=== PATIENT | female | born 1965 | race African-American/Black ===

== ENCOUNTER 2017-06-07 15:50 | Inpatient (IN) | payer MEDICARE, MEDICAID ==
[~2017-06-07] VITALS: Ht 165.1 cm; Wt 97.5 kg
[~2017-06-07 15:50] MED LIST: DIAZ5TAB4 PO; HYDR-548 PO; LIDO30AD10 TD; NAPR-1164 PO; PANT40TA2 PO
[2017-06-07] MEDS ORDERED: HYDROMORPHONE 1 MG/1 ML DISP.SYRIN IV ONE ×3 (16:45→18:30)
[2017-06-07] MEDS ORDERED: HYDROMORPHONE 2 MG/1 ML DISP.SYRIN ONE ×3 (17:02→18:51)
[2017-06-07 17:08] LABS: BASOPHILS % (AUTO) 0.5 % (0.0-2.0); EOSINOPHILS # (AUTO) 0.2 K/uL (0.0-0.7); EOSINOPHILS % (AUTO) 4.2 % (0.0-7.0); HEMATOCRIT 30.1 % (31.2-41.9); LYMPHOCYTES # (AUTO) 0.8 K/uL (20.0-40.0); LYMPHOCYTES % (AUTO) 19.9 % (20.5-51.5); MEAN CORPUSCULAR HEMOGLOBIN 25.8 uug (24.7-32.8); MEAN CORPUSCULAR HGB CONC 33 g/dL (32.3-35.6); MEAN CORPUSCULAR VOLUME 78.1 fL (75.5-95.3); MONOCYTES # (AUTO) 0.3 K/uL (2.0-10.0); MONOCYTES % (AUTO) 7.5 % (0.0-11.0); NEUTROPHILS # (AUTO) 2.6 K/uL (1.8-8.9); NEUTROPHILS % (AUTO) 67.9 % (38.5-71.5); PLATELET COUNT (AUTO) 195 K/uL (179-408); RED BLOOD CELL COUNT(AUTO) 3.86 MIL/uL (3.63-4.92); WHITE BLOOD COUNT (AUTO) 3.9 K/uL (3.8-11.8)
[2017-06-07 17:41] LABS: CREATININE 0.9 mg/dL (0.6-1.3); POTASSIUM 3.8 mmol/L (3.5-5.1)
[2017-06-07 17:47] LABS: BILIRUBIN,TOTAL 0.5 mg/dL (0.2-1.0); TOTAL PROTEIN, SERUM 6.7 g/dL (6.4-8.2)
[2017-06-07] MEDS ORDERED: TRAZODONE PO (18:35)
[2017-06-07] MEDS ORDERED: FLEXERIL PO (18:35)
[2017-06-07 20:30] VITALS: BP 115/78
[2017-06-07] MEDS ORDERED: TRAZODONE 100 MG TABLET PO PRN (23:00)
[2017-06-07] MEDS: ONDANSETRON 4 MG/2 ML VIAL IV PRN (23:09)
[2017-06-08] MEDS: HYDROMORPHONE 2 MG/1 ML DISP.SYRIN IV PRN ×4 (01:35→14:49)
[2017-06-08] MEDS ORDERED: HYDROMORPHONE 2 MG/1 ML DISP.SYRIN ONE (01:52)
[2017-06-08] MEDS ORDERED: IV NS 1000 ML 1,000 ML IV PRN (02:14)
[2017-06-08] MEDS ORDERED: DEXAMETHASONE SOD PHOSPHATE 10 MG INJ IV ONE (02:15)
[2017-06-08] MEDS ORDERED: ACETAMINOPHEN 325 MG TABLET PO PRN (02:15)
[2017-06-08] MEDS ORDERED: ONDANSETRON 4 MG/2 ML VIAL IV PRN (02:15)
[2017-06-08] MEDS ORDERED: DIAZEPAM 5 MG TABLET PO PRN (02:15)
[2017-06-08] MEDS ORDERED: ZOLPIDEM 5 MG TABLET PO PRN (02:15)
[2017-06-08 05:36] VITALS: BP 125/78
[2017-06-08 06:33] LABS: BASOPHILS % (AUTO) 0.5 % (0.0-2.0); EOSINOPHILS # (AUTO) 0.2 K/uL (0.0-0.7); EOSINOPHILS % (AUTO) 4.9 % (0.0-7.0); HEMATOCRIT 28.7 % (31.2-41.9); HEMOGLOBIN 9.3 g/dL (10.9-14.3); LYMPHOCYTES # (AUTO) 1.1 K/uL (20.0-40.0); LYMPHOCYTES % (AUTO) 29.7 % (20.5-51.5); MEAN CORPUSCULAR HEMOGLOBIN 25.1 uug (24.7-32.8); MEAN CORPUSCULAR HGB CONC 32 g/dL (32.3-35.6); MEAN CORPUSCULAR VOLUME 77.8 fL (75.5-95.3); MONOCYTES # (AUTO) 0.4 K/uL (2.0-10.0); MONOCYTES % (AUTO) 11.2 % (0.0-11.0); NEUTROPHILS # (AUTO) 1.9 K/uL (1.8-8.9); NEUTROPHILS % (AUTO) 53.7 % (38.5-71.5); PLATELET COUNT (AUTO) 200 K/uL (179-408); RED BLOOD CELL COUNT(AUTO) 3.69 MIL/uL (3.63-4.92); WHITE BLOOD COUNT (AUTO) 3.6 K/uL (3.8-11.8)
[2017-06-08 06:54] LABS: BILIRUBIN,TOTAL 0.3 mg/dL (0.2-1.0); MAGNESIUM 1.8 mg/dL (1.8-2.4); PHOSPHOROUS 4.6 mg/dL (2.5-4.9); POTASSIUM 3.6 mmol/L (3.5-5.1); TOTAL PROTEIN, SERUM 6.5 g/dL (6.4-8.2)
[2017-06-08 07:05] LABS: THYROID STIMULATING HORMONE 1.142 mIU/mL (0.358-3.740)
[2017-06-08] MEDS: ONDANSETRON 4 MG/2 ML VIAL IV PRN (08:25)
[2017-06-08] MEDS: NAPROXEN 500 MG TABLET PO SCH ×2 (08:25→16:21)
[2017-06-08 10:39] VITALS: BP 109/74
[2017-06-08 14:42] VITALS: BP 105/73
[2017-06-10 12:09] LABS: *HEMOGLOBIN A 64.5 % (96.4-98.8); *HEMOGLOBIN A2 3.6 % (1.8-3.2); *HEMOGLOBIN S 31.9 % (0.0)
== END 2017-06-08 16:40 | disposition home or self-care (01) | DRG 93 ==
LOC: ER 15:51 → MED 19:55
PROVIDERS: ADMIT Nurse Practitioner Acute Care; ATTEND Nurse Practitioner Acute Care
DX: G89.29 Other chronic pain (principal); D57.1 Sickle-cell disease without crisis; D50.9 Iron deficiency anemia, unspecified; M48.061 Spinal stenosis, lumbar region without neurogenic claudication; Z98.84 Bariatric surgery status
CPT/HCPCS: 36415; 83021; 83735; 84100; 84443; 85025; 85651; 85660; A4663; J1170; J2405; J7030

== ENCOUNTER 2018-05-24 23:09 | Inpatient (IN) | payer MEDICARE, MEDICAID ==
[~2018-05-24] VITALS: Ht 165.1 cm; Wt 83.1 kg
[~2018-05-24 23:09] MED LIST changes: +FLEXERIL PO; +HYDR-4354 PO; -HYDR-548 PO; -LIDO30AD10 TD; -PANT40TA2 PO; +TRAZODONE PO
[2018-05-25] MEDS ORDERED: PANTOPRAZOLE SODIUM 40 MG VIAL IV ONE
[2018-05-25 00:23] LABS: BASOPHILS % (AUTO) 0.6 % (0.0-2.0); EOSINOPHILS # (AUTO) 0.1 K/uL (0.0-0.7); EOSINOPHILS % (AUTO) 2.3 % (0.0-7.0); HEMATOCRIT 28.2 % (31.2-41.9); HEMOGLOBIN 9.2 g/dL (10.9-14.3); LYMPHOCYTES % (AUTO) 36.2 % (20.5-51.5); MEAN CORPUSCULAR HEMOGLOBIN 22.6 uug (24.7-32.8); MEAN CORPUSCULAR HGB CONC 33 g/dL (32.3-35.6); MEAN CORPUSCULAR VOLUME 69.2 fL (75.5-95.3); MONOCYTES # (AUTO) 0.3 K/uL (2.0-10.0); MONOCYTES % (AUTO) 5.4 % (0.0-11.0); NEUTROPHILS # (AUTO) 3.1 K/uL (1.8-8.9); NEUTROPHILS % (AUTO) 55.5 % (38.5-71.5); PLATELET COUNT (AUTO) 306 K/uL (179-408); RED BLOOD CELL COUNT(AUTO) 4.08 MIL/uL (3.63-4.92); WHITE BLOOD COUNT (AUTO) 5.6 K/uL (3.8-11.8)
[2018-05-25] MEDS ORDERED: ONDANSETRON 4 MG/2 ML VIAL ONE ×2 (00:27→01:27)
[2018-05-25] MEDS ORDERED: PANTOPRAZOLE SODIUM 40 MG VIAL ONE (00:27)
[2018-05-25 00:45] LABS: BILIRUBIN,DIRECT 0.1 mg/dL (0.0-0.2); BILIRUBIN,TOTAL 0.4 mg/dL (0.2-1.0); CREATININE 0.8 mg/dL (0.6-1.3); POTASSIUM 3.3 mmol/L (3.5-5.1); TOTAL PROTEIN, SERUM 8.4 g/dL (6.4-8.2)
[2018-05-25] MEDS ORDERED: GABA600T12 PO (01:24)
[2018-05-25] MEDS ORDERED: CARI350T PO (01:24)
[2018-05-25] MEDS ORDERED: ARIP10TA9 PO (01:24)
[2018-05-25] MEDS ORDERED: HYDROMORPHONE 1 MG/1 ML DISP.SYRIN ONE (01:27)
[2018-05-25] MEDS ORDERED: ONDANSETRON 4 MG/2 ML VIAL IV ONE ×2 (01:30)
[2018-05-25] MEDS ORDERED: IV NORMAL SALINE 1000 ML BAG IV ONE ×2 (01:30)
[2018-05-25] MEDS ORDERED: HYDROMORPHONE 1 MG/1 ML DISP.SYRIN IV ONE (01:30)
--- NOTE | 2018-05-25 02:16 | NUR ---
Pt watching tv and sitting up in bed at this time, in no acute distress.
--- NOTE | 2018-05-25 02:36 | NUR ---
Report given to Rona SHARMA
[2018-05-25] MEDS ORDERED: ONDANSETRON 4 MG/2 ML VIAL IV PRN (02:45)
[2018-05-25] MEDS ORDERED: ZOLPIDEM 5 MG TABLET PO PRN (02:45)
[2018-05-25] MEDS ORDERED: IV NS 1000 ML 1,000 ML IV PRN (02:45)
[2018-05-25] MEDS ORDERED: ACETAMINOPHEN 325 MG TABLET PO PRN (02:45)
[2018-05-25] MEDS ORDERED: KETOROLAC TROMETHAMINE 15 MG INJ IVP PRN (02:45)
--- NOTE | 2018-05-25 02:59 | NUR ---
Pt. admitted to [facility] , under care of Kristofer Belongs List completed
[2018-05-25 03:00] VITALS: BP 123/82
--- NOTE | 2018-05-25 03:00 | NUR ---
Received pt on m/s unit, under the care of DASHAWN MARION. Dx Acute pancreatitis. AxO x4. Pt c/o of pain 12/10. Pain management on shift. Order of KCL 20mEQ noted. Pertinent assessments and unit orientation done. Belongings list completed. Safe environment implemented, call light within reach. Will continue to monitor and carry out all orders.
[2018-05-25] MEDS: POTASSIUM CHLORIDE 50 ML IV SCH ×2 (03:34→04:57)
[2018-05-25] MEDS: PANTOPRAZOLE SODIUM 40 MG VIAL IV SCH ×2 (03:34→09:44)
[2018-05-25 07:04] LABS: CREATININE 0.7 mg/dL (0.6-1.3); POTASSIUM 3.8 mmol/L (3.5-5.1)
--- NOTE | 2018-05-25 08:00 | NUR ---
Patient awake, alert, not in any form of acute distress. No complain of any pain or discomfort at this time. Peripheral IV line on the left AC, in place and patent with NS IV running at 100 cc/hr. Call light placed within reach.
--- NOTE | 2018-05-25 10:30 | NUR ---
Patient complained of pain, offered PRN ketorolac as ordered but patient refused to receive medication, asking for a different pain medication. Notified Lissette English CLIENT EXPERIENCE CONSULTANT regarding patient's concern but no new order given and CLIENT EXPERIENCE CONSULTANT stated she will speak to the patient. Patient made aware.
--- NOTE | 2018-05-25 12:40 | NUR ---
Patient stated she wanted to go home. Explained to patient that no order for discharge and that if she leaves she is going home against medical advise with verbalized understanding. But patient still wanted to go home. Patient also asking for her psych medications and [employer] Lissette English made aware. Explained the risks of going home against medical advise but patient kept insisting on going home. She refused to sign AMA form. Patient kept shouting at the nurse. Offered her pain medication for complain of pain but patient still refused. Patient not accepting any assistance from nurse, she pulled out peripheral IV herself and name band. Patient left AMA and does not want any assistance offered.
[2018-05-25] MEDS ORDERED: Medication Not On Formulary EA (Gabapentin 600 MG) PO SCH (13:00)
[2018-05-25] MEDS ORDERED: GABAPENTIN 300 MG CAPSULE PO SCH (13:00)
[2018-05-26] MEDS ORDERED: ARIPIPRAZOLE 10 MG TABLET PO SCH (09:00)
== END 2018-05-25 12:45 | disposition left against medical advice (07) | DRG 440 ==
LOC: ER 23:09 → MED 05-25 02:39
PROVIDERS: ADMIT Nurse Practitioner Acute Care; ATTEND Registered Nurse
DX: K85.20 Alcohol induced acute pancreatitis without necrosis or infection (principal); K86.0 Alcohol-induced chronic pancreatitis; D57.1 Sickle-cell disease without crisis; Z98.84 Bariatric surgery status; K43.9 Ventral hernia without obstruction or gangrene; Z79.899 Other long term (current) drug therapy; E87.6 Hypokalemia; E66.9 Obesity, unspecified; Z68.30 Body mass index [BMI] 30.0-30.9, adult; F31.9 Bipolar disorder, unspecified; Z71.3 Dietary counseling and surveillance; F10.10 Alcohol abuse, uncomplicated; Y90.9 Presence of alcohol in blood, level not specified; Z76.5 Malingerer [conscious simulation]
CPT/HCPCS: 36415; 70030-TC; 71045; 83690; 85025; 93005; A4663; C9113; G0378; J1170; J1885; J2405; J3480; J7030

== ENCOUNTER 2018-05-25 15:08 | Emergency (ER) | payer MEDICARE, MEDICAID ==
[~2018-05-25] VITALS: Ht 165.1 cm; Wt 83.0 kg
[~2018-05-25 15:08] MED LIST changes: +ARIP10TA9 PO; +CARI350T PO; +GABA600T12 PO
--- NOTE | 2018-05-25 16:07 | NUR ---
PT A/OX4, PRESENTS TO THE ER C/O ABD PAIN. PT STATES SHE WAS SEEN IN THIS ER LAST NIGHT AND ADMITTED TO THIS HOSPITAL FOR PANCREATITIS BUT SHE LEFT AMA BECAUSE SHE WAS "ONLY GETTING TRAMADOL AND NOT DILAUDID". PT SLEEPING IN BED COMFORTABLY AT THIS TIME.
--- NOTE | 2018-05-25 16:44 | NUR ---
DAVE OSORIO AT BEDSIDE FOR MSE.
--- NOTE | 2018-05-25 16:55 | NUR ---
HEEL REDUCER AT BEDSIDE.
[2018-05-25 17:32] LABS: BASOPHILS % (AUTO) 0.3 % (0.0-2.0); EOSINOPHILS # (AUTO) 0.1 K/uL (0.0-0.7); EOSINOPHILS % (AUTO) 3.5 % (0.0-7.0); HEMATOCRIT 28.5 % (31.2-41.9); HEMOGLOBIN 9.1 g/dL (10.9-14.3); LYMPHOCYTES # (AUTO) 1.7 K/uL (20.0-40.0); LYMPHOCYTES % (AUTO) 47.4 % (20.5-51.5); MEAN CORPUSCULAR HEMOGLOBIN 22.6 uug (24.7-32.8); MEAN CORPUSCULAR HGB CONC 32 g/dL (32.3-35.6); MEAN CORPUSCULAR VOLUME 71.1 fL (75.5-95.3); MONOCYTES # (AUTO) 0.3 K/uL (2.0-10.0); MONOCYTES % (AUTO) 7.1 % (0.0-11.0); NEUTROPHILS # (AUTO) 1.5 K/uL (1.8-8.9); NEUTROPHILS % (AUTO) 41.7 % (38.5-71.5); PLATELET COUNT (AUTO) 283 K/uL (179-408); RED BLOOD CELL COUNT(AUTO) 4.01 MIL/uL (3.63-4.92); WHITE BLOOD COUNT (AUTO) 3.6 K/uL (3.8-11.8)
[2018-05-25 17:41] LABS: *BILIRUBIN,URIN NEGATIVE (NEGATIVE); *BLOOD, URINE NEGATIVE (NEGATIVE); *COLOR,URINE YELLOW (YELLOW); *KETONES,URINE NEGATIVE (NEGATIVE); *PROTEIN,URINE NEGATIVE (NEGATIVE); *UROBILINOGEN,URINE 0.2 E.U./dl (NORMAL); LEUKOCYTE ESTERASE ,URINE NEGATIVE (NEGATIVE); NITRITE, URINE NEGATIVE (NEGATIVE); PH,URINE 5.5 (5.0-8.0); UGLUCOSE NEGATIVE (NEGATIVE)
[2018-05-25 17:42] LABS: CARBON DIOXIDE 27 mmol/L (21-32); CHLORIDE 104 mmol/L (98-107); CREATININE 0.8 mg/dL (0.6-1.3); GLUCOSE 100 mg/dL (74-106); POTASSIUM 3.5 mmol/L (3.5-5.1); UREA NITROGEN, BLOOD 11 mg/dL (7-18)
[2018-05-25 17:48] LABS: ALANINE AMINOTRANSFERASE 32 U/L (14-59); ALKALINE PHOSPHATASE 93 U/L (50-136); ASPARTATE AMINOTRANSFERASE 21 U/L (15-37); BILIRUBIN,DIRECT 0.1 mg/dL (0.0-0.2); BILIRUBIN,TOTAL 0.3 mg/dL (0.2-1.0); CREATINE KINASE, TOTAL 120 U/L (26-192); TOTAL PROTEIN, SERUM 8.1 g/dL (6.4-8.2)
[2018-05-25 17:51] LABS: ACETAMINOPHEN < 2.0 ug/mL (10-30); ETHANOL < 3 MG/DL (0-0)
[2018-05-25 17:55] LABS: *AMPHETAMINE, URINE NEGATIVE (NEGATIVE); *BARBITURATE, URINE NEGATIVE (NEGATIVE); *CANNABINOID, URINE NEGATIVE (NEGATIVE); *COCCAINE, URINE NEGATIVE (NEGATIVE); *OPIATE, URINE NEGATIVE (NEGATIVE); *PHENCYCLIDINE SCREEN,URINE NEGATIVE (NEGATIVE)
[2018-05-25 18:01] LABS: *CLARITY,URINE SLIGHTLY HAZY (CLEAR)
[2018-05-25 18:02] LABS: MUCUS,URINE MANY /LPF (0-FEW); SQUAMOUS EPITHELIAL CELL,UR MODERATE /HPF (NONE SEEN); WBC,URINE 0-3 /HPF (0-3)
[2018-05-25 18:10] LABS: BAND % (MANUAL) 4 % (0-10); EOSINOPHILS % (MANUAL) 4 % (0-8); LYMPHOCYTES % (MANUAL) 36 % (20-40); MONOCYTES % (MANUAL) 11 % (2-10); NEUTROPHILS % (MANUAL) 45 % (42-75)
--- NOTE | 2018-05-25 19:15 | NUR ---
SHIFT REPORT GIVEN TO EDITH PAGE.
--- NOTE | 2018-05-25 19:22 | NUR ---
PATIENT IS ASLEEP AT THIS TIME. NO DISTRESS NOTED. WILL MONITOR.
--- NOTE | 2018-05-25 22:15 | NUR ---
PATIENT IS AWAKE, C/O ABDOMINAL PAIN. DR. OLIVA NOTIFIED. NEW ORDERS RECEIVED.
[2018-05-25] MEDS ORDERED: OXYCODONE/APAP 5-325 MG TABLET ONE ×2 (22:18→22:21)
[2018-05-25] MEDS: OXYCODONE/APAP 5-325 MG TABLET PO ONE (22:25)
--- NOTE | 2018-05-25 23:10 | NUR ---
PATIENT IS ASLEEP, RESPIRATIONS EVEN AND UNLABORED.
[2018-05-26] MEDS ORDERED: SUCRALFATE 1 G TABLET ONE (01:14)
[2018-05-26] MEDS: SUCRALFATE 1 G TABLET PO SCH (01:21)
[2018-05-26] MEDS ORDERED: OXYCODONE/APAP 5-325 MG TABLET ONE (02:01)
[2018-05-26] MEDS: OXYCODONE/APAP 5-325 MG TABLET PO ONE (02:07)
[2018-05-26 02:14] VITALS: BP 137/79
[2018-05-26] MEDS ORDERED: LIDOCAINE VISCUS 2% 15 ML UDC MM ONE (02:15)
[2018-05-26] MEDS ORDERED: MAG HYDROX/AL HYDROX/SIMETH 30 ML LIQUID UDC PO ONE (02:15)
== END 2018-05-26 02:16 | disposition home or self-care (01) ==
LOC: ER 15:22
DX: K85.90 Acute pancreatitis without necrosis or infection, unspecified (principal); Z88.5 Allergy status to narcotic agent; Z91.013 Allergy to seafood; Z79.891 Long term (current) use of opiate analgesic; Z79.899 Other long term (current) drug therapy
CPT/HCPCS: 36415; 80048; 80076; 80307; 81001; 82550; 83690 ×2; 84484; 85025; 85730; 99284; G0480 ×2; G0481; 70030-TC; A4663